=== PATIENT | female | born 1945 | race Caucasian/White ===

== ENCOUNTER → 2016-10-06 | Outpatient (CLI) | payer MEDICARE, OTHER ==
[2016-10-06 13:09] LABS: ALBUMIN 4.5 G/DL (3.5-5.0); ALBUMIN/GLOBULIN RATIO 1.5 RATIO (1.1-2.2); ALKALINE PHOSPHATASE 82 U/L (38-126); ALT (SGPT) 36 U/L (9-52); AST (SGOT) 35 U/L (14-36); CALCIUM 9.8 MG/DL (8.4-10.2); PHOSPHORUS 3.5 MG/DL (2.5-4.5); TOTAL PROTEIN 7.5 G/DL (6.3-8.2)
== END ==
LOC: LAB 12:26
PROVIDERS: ATTEND Internal Medicine Cardiovascular Disease
DX: E83.52 Hypercalcemia (principal)
CPT/HCPCS: 36415; 80076; 82310; 83970; 84100